=== PATIENT | male | born 1995 | race American Indian/Alaskan Native ===

== ENCOUNTER 2020-09-15 18:56 | Emergency (ER) | payer SELFPAY ==
[2020-09-15] MEDS ORDERED: FLUORESCEIN 1 MG STRIP OP ONE (18:59)
[2020-09-15] MEDS ORDERED: BALANCED SALT IRRIG (BSS) OPHTH SOLN 15 ML OU ONE (18:59)
[2020-09-15] MEDS ORDERED: TETRACAINE 0.5% OPHTH SOLN 4ML OU ONE (18:59)
--- NOTE | 2020-09-15 19:09 | Emergency Department Report ---
ED Eye Problem HPI - General Stated complaint: FB IN RT EYE Time Seen by Provider: 09/15/20 18:58 ED Review of Systems ROS: Stated complaint: FB IN RT EYE Other details as noted in HPI Critical care attestation.: If time is entered above; I have spent that time in minutes in the direct care of this critically ill patient, excluding procedure time. ED Disposition Condition: Stable
== END 2020-09-15 19:10 | disposition left against medical advice (07) ==
LOC: ED 18:56
DX: Z00.8 Encounter for other general examination (principal); Z53.21 Procedure and treatment not carried out due to patient leaving prior to being seen by health care provider